=== PATIENT | male | born 1975 | race Hispanic/Latino ===

== ENCOUNTER 2024-07-21 16:05 | Emergency (ER) | payer SELFPAY ==
--- NOTE | ~2024-07-21 | XR_ITS ---
XR chest 2V DATE: 07/21/2024 18:49 INDICATION: Dizziness. History of hypertension. TECHNIQUE: PA and lateral views COMPARISON: None FINDINGS: Normal heart size. No hilar or mediastinal enlargement. No pulmonary infiltrate or consolidation, pleural effusion or pulmonary vascular congestion or pneumo thorax is detected. Included skeletal structures are unremarkable. IMPRESSION: No active cardiopulmonary disease Reviewed, dictated and finalized at [facility].
--- NOTE | ~2024-07-21 | CT_ITS ---
EXAMINATION: CT brain wo con DATE: 07/21/2024 18:42 INDICATION: Headache, dizziness TECHNIQUE: Computed tomography (CT) of the head was performed without intravenous contrast. The mA wa s adjusted according to patient size. Iterative reconstruction technique was employed. Exam dose: 60 5.33 mGy-cm total exam DLP. COMPARISON: None FINDINGS: No intracranial mass lesion or hemorrhage or cerebrovascular accident, midline shift or mas s effect is detected. Normal ventricular size. Normal shepard-white matter differentiation. No subdural or epidural hematoma. No fracture or bone destruction of the cranial vault. The mastoid air cells and included paranasal sinuses are unremarkable. IMPRESSION: Negative Reviewed, dictated and finalized at [facility]. Reviewed, dictated and finalized at location [facility]. IMPRESSION: Negative
[2024-07-21 16:14] VITALS: BP 137/86; PULSE 81; RESP 20; TEMP 36.5; O2SAT 99
[2024-07-21 17:49] VITALS: BP 136/89; PULSE 63; PULSE 70; RESP 16; O2SAT 99
--- NOTE | 2024-07-21 17:54 | ECG_ITS ---
Test Date: 2024-07-21 18:10:14 Measurements Intervals [place] Rate: 59 P: 38 MS: 152 QRS: 37 QRSD: 93 T: 21 QT: 384 QTc: 383 Interpretive Statements SINUS BRADYCARDIA BORDERLINE ECG No previous ECG available for comparison Electronically Signed On 07-21-2024 18:58:46 CDT by Carter Gaines D.O.
--- NOTE | 2024-07-21 18:14 | ED.DIZZY ---
HPI - Dizziness General Chief Complaint: Dizziness Stated Complaint: Dizziness Time Seen by Provider: 07/21/24 18:03 Source: patient Mode of arrival: ambulatory Limitations: no limitations History of Present Illness HPI Narrative: This is a 48 year old male that presents to the ER for dizziness. Reports this has been ongoing intermittently over the last couple of days. Reports associated headaches. Reports worsening with position changes. Describes his dizziness at feeling lightheaded. Denies chest pain, shortness of breath, numbness or weakness. Related Data Allergies Allergy/AdvReac Type Severity Reaction Status Date / Time No Known Allergies Allergy Verified 07/21/24 17:53 Review of Systems Review of Systems: CONSTITUTIONAL: Denies fever EYES: Denies visual changes CARDIOVASCULAR: Denies chest pain, palpitations RESPIRATORY: Denies dyspnea. GASTROINTESTINAL: Denies vomiting NEUROLOGIC: Reports headache. Denies numbness, or weakness. All systems reviewed & are unremarkable except as noted in HPI and below PMFSH Past Medical History Medical History (Updated 07/21/24 @ 20:56 by Mayra Mitchell PA-C) History of hypertension Social History Social History (Updated 07/21/24 @ 20:50 by Mayra Mitchell PA-C) Smoking status: Never smoker Exam Narrative: GENERAL: Well-appearing, well-nourished, and in no acute distress. HEAD: Normocephalic, atraumatic. EYES: PERRLA and EOMI. ENT: Nares clear, no rhinorrhea or epistaxis. Mucous membranes moist. Oropharynx without tonsillar hypertrophy exudate or other lesions. Bilateral TMs pearly shepard non-bulging NECK: Supple. No adenopathy or masses. CHEST: Clear to auscultation. No respiratory distress. No wheezes rales or rhonchi HEART: Regular rate and rhythm. No murmur heard. Normal peripheral pulses. EXTREMITIES: Normal range of motion. No edema. SKIN: Warm, dry, no rash. NEURO: No focal deficits. Alert and oriented x3. CN II-XII grossly intact PSYCH: Normal mood and affect Course Course Emergency Course: Patient updated on workup and agrees with plan of care Vital Signs Vital signs: Vital Signs Temperature 97.7 F 07/21/24 16:14 Pulse Rate 81 07/21/24 16:14 Respiratory Rate 20 07/21/24 16:14 Blood Pressure 137/86 07/21/24 16:14 Pulse Oximetry 99 07/21/24 16:14 Temperature 97.7 F 07/21/24 16:14 Pulse Rate 63 07/21/24 17:49 Respiratory Rate 16 07/21/24 17:49 Blood Pressure 136/89 07/21/24 17:49 Pulse Oximetry 99 07/21/24 17:49 MDM - Dizziness MDM Narrative Medical decision making narrative: patient presents to the emergency department for intermittent episodes of dizziness which he describes as lightheadedness. He is afebrile and nontoxic appearing. His vitals are stable. CBC metabolic panel without concerning findings. EKG without concerning changes. CT brain was normal. Chest x-ray without acute cardiopulmonary abnormality. Patient updated on his workup. Resting comfortably. Agrees with plan of care. He is to follow up with primary care provider for further evaluation. He was given warnings to return to the ER Differential Diagnosis Differential diagnosis: Likely adverse reaction to drug, benign paroxysmal positional vertigo and other (dehydration, infection, intracranial hemorrhage, intracranial mass, arrhythmia, ) Lab Data Attestation: I reviewed the patient's lab results. 07/21/24 18:06 07/21/24 18:06 Labs: Lab Results 07/21/24 07/21/24 Range/Units 18:01 18:06 WBC 5.2 (4.5-10.0) K/mm3 RBC 4.55 L (4.6-6.20) M/mm3 Hgb 14.1 (14.0-18.0) g/dL Hct 40.9 L (42.0-52.0) % MCV 89.9 (80-100) fl MCH 31.0 (26-34) pg MCHC 34.5 (32-36) g/dl RDW 11.9 (11.5-14.5) % Plt Count 155 (150-375) k/mm3 MPV 11.8 H (7.4-10.4) fl Immature Gran % (Auto) 0.2 (0-0.5) % Neut % (Auto) 63.2 (45.5-73.1) % Lymph % (Auto) 26.1 (18.3-44.2) %
[2024-07-21 18:16] LABS: Hemoglobin 14.1 g/dL (14.0-18.0); Red Blood Count 4.55 M/mm3 (4.6-6.20); White Blood Count 5.2 K/mm3 (4.5-10.0)
[2024-07-21 18:17] LABS: Basophils Percent Auto 0.6 % (0.2-1.2); Eosinophils Absolute Auto 0.1 K/mm3 (0-0.3); Eosinophils Percent Auto 1.2 % (0-4.4); Hematocrit 40.9 % (42.0-52.0); Immature Granulocyte Absolute 0.01 K/mm3 (0.00-0.031); Immature Granulocyte Percent A 0.2 % (0-0.5); Lymphocytes Absolute Auto 1.35 K/mm3 (0.9-3.2); Lymphocytes Percent Auto 26.1 % (18.3-44.2); Mean Corpuscular HGB Conc 34.5 g/dl (32-36); Mean Corpuscular Volume 89.9 fl (80-100); Mean Platelet Volume 11.8 fl (7.4-10.4); Monocytes Absolute Auto 0.5 K/mm3 (0.1-0.6); Monocytes Percent Auto 8.7 % (2.6-8.5); Neutrophils Absolute Auto 3.3 K/mm3 (1.3-6.7); Neutrophils Percent Auto 63.2 % (45.5-73.1); Platelet Count Result 155 k/mm3 (150-375); Red Cell Distribution Width 11.9 % (11.5-14.5)
[2024-07-21] MEDS: SODIUM CHLORIDE 0.9% IV 1,000 ML 999 ML IV CONT (18:18)
[2024-07-21 18:27] LABS: Alanine Aminotransferase 33 U/L (6-50); Albumin Level 4.6 g/dL (3.5-5.1); Alkaline Phosphatase 40 U/L (38-126); Anion Gap 11 mmol/L (4-12); Aspartate Amino Transferase 26 U/L (17-59); Bilirubin,Total 0.5 mg/dL (0.2-1.3); Blood Urea Nitrogen 18 mg/dL (9-20); Calcium 9.3 mg/dL (8.4-10.2); Carbon Dioxide 25 mmol/L (22-30); Chloride 103 mmol/L (98-107); Estimated CRCL calculation 97 ml/min; Estimated Glomerular Filt Rate > 60; Glucose 101 mg/dL (65-110); Potassium 4.1 mmol/L (3.4-5.0); Sodium 139 mmol/L (137-145)
[2024-07-21 18:47] LABS: Glucose Point of Care 105 mg/dl (65-105)
[2024-07-21 21:46] VITALS: BP 127/86; PULSE 67; RESP 17; O2SAT 99
== END 2024-07-21 21:48 | disposition home or self-care (01) ==
PROVIDERS: Student in an Organized Health Care Education/Training Program; Emergency Provider Physician Assistant; PCP Physician Assistant
DX: R42 Dizziness and giddiness (principal); R00.1 Bradycardia, unspecified; I10 Essential (primary) hypertension
CPT/HCPCS: 36415; 70450; 71046; 80053; 82948; 85025; 93005; 96360; 99284; J7030